=== PATIENT | male | born 1960 | race Hispanic/Latino ===

== ENCOUNTER 2021-12-25 08:48 | Inpatient (IN) | payer BC, OTHER ==
[~2021-12-25] VITALS: Ht 177.8 cm; Wt 88.3 kg
[2021-12-25 09:09] LABS: BASOPHILS % (AUTO) 0.6 % (0.0-5.0); EOSINOPHILS % (AUTO) 2.2 % (0.0-8.0); HEMATOCRIT 46.2 % (42-54); LYMPHOCYTES % (AUTO) 19.9 % (21.0-51.0); MEAN CORPUSCULAR HEMOGLOBIN 28.8 pg (27.0-33.0); MEAN CORPUSCULAR HGB CONC 32.9 g/dL (32.0-36.0); MEAN CORPUSCULAR VOLUME 87.5 fL (79-99); MONOCYTES % (AUTO) 7.2 % (3.0-13.0); NEUTROPHILS % (AUTO) 69.6 % (40.0-77.0); PLATELET COUNT (AUTO) 274 K/uL (130-400); RED BLOOD CELL COUNT(AUTO) 5.28 MIL/uL (4.50-6.20); RED CELL DISTRIBUTION WIDTH 12.7 % (11.0-15.5); WHITE BLOOD COUNT (AUTO) 8.3 K/uL (4.8-10.8)
[2021-12-25 09:41] LABS: APPEARANCE,URINE CLEAR (CLEAR); BILIRUBIN,URINE NEGATIVE (NEGATIVE); COLOR,URINE YELLOW (YELLOW); GLUCOSE, URINE (UA) NEGATIVE (NEGATIVE); KETONES,URINE NEGATIVE (NEGATIVE); LEUKOCYTE ESTERASE ,URINE NEGATIVE (NEGATIVE); NITRATE,URINE NEGATIVE (NEGATIVE); OCCULT BLOOD,URINE NEGATIVE (NEGATIVE); PH,URINE 7.5 (5.0-8.0); PROTEIN,URINE NEGATIVE (NEGATIVE); UROBILINOGEN,URINE 0.2 mg/dL (0.2-1.0)
[2021-12-25 09:49] LABS: CARBON DIOXIDE 28 mmol/L (21-32); CHLORIDE 104 mmol/L (101-111); GLOMERULAR FILTR. RATE CALC 80 mL/min (>60); GLUCOSE,RANDOM 134 mg/dL (70-105); POTASSIUM 4.3 mmol/L (3.5-5.1); SODIUM SERUM 140 mmol/L (136-145); UREA NITROGEN, BLOOD 13 mg/dL (7-18)
[2021-12-25 09:53] LABS: ALANINE AMINOTRANSFERASE 20 U/L (12-78); ALBUMIN 3.7 g/dL (3.5-5.0); ASPARTATE AMINOTRANSFERASE 22 U/L (10-37); LIPASE 110 U/L (114-286); TOTAL PROTEIN, SERUM 8.1 g/dL (6.0-8.3)
[2021-12-25] MEDS ORDERED: MORPHINE 4 MG SYG IVP ONE (10:00)
[2021-12-25] MEDS ORDERED: ONDANSETRON 4MG INJ IVP ONE (10:00)
[2021-12-25] MEDS ORDERED: ACET-2743 PO (10:01)
[2021-12-25] MEDS ORDERED: MVIT PO (10:01)
[2021-12-25] MEDS ORDERED: IBUP-2077 PO (10:01)
[2021-12-25 12:05] VITALS: BP 134/73
[2021-12-25] MEDS ORDERED: ACETAMINOPHEN 325 MG TAB PO PRN (15:00)
[2021-12-25] MEDS: HYDROMORPHONE 1 MG INJ IVP PRN (15:23)
[2021-12-25] MEDS: LEVOFLOXACIN 500 MG/D5W 100 ML 100 ML IV SCH (15:28)
[2021-12-25] MEDS: 0.9%NACL 1000ML 1,000 ML IV SCH (15:34)
[2021-12-25 16:08] VITALS: BP 172/107
[2021-12-25] MEDS: ONDANSETRON 4MG INJ IVP PRN (17:39)
[2021-12-25 20:14] VITALS: BP 145/87
[2021-12-25] MEDS: METRONIDAZOLE 500MG/100ML BAG 100 ML IVPB SCH (21:34)
[2021-12-25] MEDS: FAMOTIDINE 20MG VIAL IV SCH (21:34)
[2021-12-26] VITALS (7 sets, daily range): BP systolic 131–153; BP diastolic 77–84
[2021-12-26] MEDS: ONDANSETRON 4MG INJ IVP PRN ×2 (02:54→16:50)
[2021-12-26] MEDS: HYDROMORPHONE 1 MG INJ IVP PRN ×4 (02:55→17:21)
[2021-12-26 05:21] LABS: BASOPHILS % (AUTO) 0.5 % (0.0-5.0); EOSINOPHILS % (AUTO) 1.3 % (0.0-8.0); HEMATOCRIT 45.4 % (42-54); LYMPHOCYTES % (AUTO) 16.5 % (21.0-51.0); MEAN CORPUSCULAR HEMOGLOBIN 28.5 pg (27.0-33.0); MEAN CORPUSCULAR HGB CONC 32.8 g/dL (32.0-36.0); MEAN CORPUSCULAR VOLUME 86.8 fL (79-99); NEUTROPHILS % (AUTO) 72.5 % (40.0-77.0); PLATELET COUNT (AUTO) 254 K/uL (130-400); RED BLOOD CELL COUNT(AUTO) 5.23 MIL/uL (4.50-6.20); RED CELL DISTRIBUTION WIDTH 12.8 % (11.0-15.5); WHITE BLOOD COUNT (AUTO) 8.5 K/uL (4.8-10.8)
[2021-12-26] MEDS: METRONIDAZOLE 500MG/100ML BAG 100 ML IVPB SCH ×3 (05:26→21:01)
[2021-12-26 05:40] LABS: ALANINE AMINOTRANSFERASE 16 U/L (12-78); ALBUMIN 3.2 g/dL (3.5-5.0); ASPARTATE AMINOTRANSFERASE 19 U/L (10-37); CARBON DIOXIDE 29 mmol/L (21-32); CHLORIDE 103 mmol/L (101-111); CREATININE 1.1 mg/dL (0.5-1.5); GLOMERULAR FILTR. RATE CALC 72 mL/min (>60); GLUCOSE,RANDOM 125 mg/dL (70-105); SODIUM SERUM 138 mmol/L (136-145); TOTAL PROTEIN, SERUM 7.5 g/dL (6.0-8.3); UREA NITROGEN, BLOOD 15 mg/dL (7-18)
[2021-12-26] MEDS: FAMOTIDINE 20MG VIAL IV SCH ×2 (08:34→21:01)
[2021-12-26] MEDS: ENOXAPARIN SODIUM 30 MG/0.3 ML SQ SCH (08:35)
[2021-12-26] MEDS: 0.9%NACL 1000ML 1,000 ML IV SCH ×2 (08:38→17:40)
[2021-12-26] MEDS ORDERED: DIATR MEGLU/DIATRIZOATE SODIUM 30 ML BOTTLE ONE (14:20)
[2021-12-26] MEDS: LEVOFLOXACIN 500 MG/D5W 100 ML 100 ML IV SCH (14:44)
[2021-12-26] MEDS ORDERED: IOHEXOL 350 MG/ML 100ML INFUS..BTL IV ONE (18:18)
[2021-12-26] MEDS: MORPHINE 4 MG SYG IVP PRN (21:01)
[2021-12-27] MEDS: HYDROMORPHONE 1 MG INJ IVP PRN ×4 (01:48→19:19)
[2021-12-27 04:10] VITALS: BP 150/81
[2021-12-27 05:07] LABS: HEMATOCRIT 44.7 % (42-54); MEAN CORPUSCULAR HEMOGLOBIN 28.8 pg (27.0-33.0); MEAN CORPUSCULAR HGB CONC 33.3 g/dL (32.0-36.0); MEAN CORPUSCULAR VOLUME 86.3 fL (79-99); RED BLOOD CELL COUNT(AUTO) 5.18 MIL/uL (4.50-6.20); RED CELL DISTRIBUTION WIDTH 12.5 % (11.0-15.5); WHITE BLOOD COUNT (AUTO) 8.6 K/uL (4.8-10.8)
[2021-12-27 05:28] LABS: CREATININE 0.9 mg/dL (0.5-1.5); POTASSIUM 3.7 mmol/L (3.5-5.1)
[2021-12-27] MEDS: MORPHINE 4 MG SYG IVP PRN (05:34)
[2021-12-27] MEDS: 0.9%NACL 1000ML 1,000 ML IV SCH ×2 (05:35→20:20)
[2021-12-27] MEDS: METRONIDAZOLE 500MG/100ML BAG 100 ML IVPB SCH ×3 (05:35→21:31)
[2021-12-27] MEDS: ONDANSETRON 4MG INJ IVP PRN ×2 (05:42→13:48)
[2021-12-27 08:00] VITALS: BP 164/88
[2021-12-27] MEDS: ENOXAPARIN SODIUM 30 MG/0.3 ML SQ SCH (08:54)
[2021-12-27] MEDS: FAMOTIDINE 20MG VIAL IV SCH ×2 (08:54→21:31)
[2021-12-27] MEDS ORDERED: LIDOCAINE HCL-MPF 1% 2ML VIAL IV PRN (10:30)
[2021-12-27] MEDS ORDERED: POTASSIUM CHLORIDE 10% ELIXIR 20 MEQ/15 ML UDCUP PO PRN (10:30)
[2021-12-27] MEDS ORDERED: MAGNESIUM 2GM PREMIX 50ML 50 ML IV PRN (10:30)
[2021-12-27] MEDS ORDERED: POTASSIUM CHLORIDE 20MEQ/100ML 100 ML IV PRN (10:30)
[2021-12-27] MEDS ORDERED: GADOTERATE MEGLUMINE 10 MMOL/20 ML VIAL IV ONE (10:41)
[2021-12-27] MEDS: KCL 20 MEQ ERTAB PO PRN ×2 (13:28→16:05)
[2021-12-27 16:00] VITALS: BP 168/89
[2021-12-27] MEDS: LEVOFLOXACIN 500 MG/D5W 100 ML 100 ML IV SCH (16:05)
[2021-12-27 19:51] VITALS: BP 158/86
[2021-12-27] MEDS: KETOROLAC 30MG VIAL (30MG/ML) IVP PRN (21:31)
[2021-12-27 23:35] VITALS: BP 141/82
[2021-12-28] MEDS: HYDROMORPHONE 1 MG INJ IVP PRN (00:30)
[2021-12-28] MEDS: ONDANSETRON 4MG INJ IVP PRN ×2 (03:30→11:43)
[2021-12-28] MEDS: MORPHINE 4 MG SYG IVP PRN ×2 (03:31→13:46)
[2021-12-28 03:50] VITALS: BP 154/93
[2021-12-28 05:16] LABS: HEMATOCRIT 42.6 % (42-54); MEAN CORPUSCULAR HEMOGLOBIN 28.7 pg (27.0-33.0); MEAN CORPUSCULAR HGB CONC 32.9 g/dL (32.0-36.0); MEAN CORPUSCULAR VOLUME 87.5 fL (79-99); RED BLOOD CELL COUNT(AUTO) 4.87 MIL/uL (4.50-6.20); RED CELL DISTRIBUTION WIDTH 12.5 % (11.0-15.5); WHITE BLOOD COUNT (AUTO) 6.8 K/uL (4.8-10.8)
[2021-12-28] MEDS: METRONIDAZOLE 500MG/100ML BAG 100 ML IVPB SCH ×3 (05:18→22:09)
[2021-12-28] MEDS: KETOROLAC 30MG VIAL (30MG/ML) IVP PRN (05:18)
[2021-12-28 05:24] LABS: CREATININE 0.9 mg/dL (0.5-1.5); POTASSIUM 4.9 mmol/L (3.5-5.1)
[2021-12-28 07:58] VITALS: BP 163/89
[2021-12-28] MEDS: 0.9%NACL 1000ML 1,000 ML IV SCH ×2 (08:39→23:27)
[2021-12-28] MEDS: ENOXAPARIN SODIUM 30 MG/0.3 ML SQ SCH (08:43)
[2021-12-28] MEDS: FAMOTIDINE 20MG VIAL IV SCH ×2 (08:43→20:56)
[2021-12-28] MEDS: BICALUTAMIDE 50 MG PO SCH (10:00)
[2021-12-28] MEDS: DEXAMETHASONE SOD PHOSPHATE 4 MG/ML 1ML VIAL IV SCH (11:28)
[2021-12-28 12:00] VITALS: BP 165/92
[2021-12-28] MEDS: LEVOFLOXACIN 500 MG/D5W 100 ML 100 ML IV SCH (13:47)
[2021-12-28 16:00] VITALS: BP 156/89
[2021-12-28 21:34] VITALS: BP 149/78
[2021-12-28 23:55] VITALS: BP 136/78
[2021-12-29] MEDS: DEXAMETHASONE SOD PHOSPHATE 4 MG/ML 1ML VIAL IV SCH ×4 (00:47→17:42)
[2021-12-29 04:34] VITALS: BP 130/63
[2021-12-29] MEDS: MORPHINE 4 MG SYG IVP PRN (04:34)
[2021-12-29] MEDS: METRONIDAZOLE 500MG/100ML BAG 100 ML IVPB SCH ×3 (05:28→20:18)
[2021-12-29 08:00] VITALS: BP 143/82
[2021-12-29] MEDS: BICALUTAMIDE 50 MG PO SCH (09:00)
[2021-12-29] MEDS: FAMOTIDINE 20MG VIAL IV SCH ×2 (09:38→20:18)
[2021-12-29] MEDS: ENOXAPARIN SODIUM 30 MG/0.3 ML SQ SCH (09:43)
[2021-12-29 12:00] VITALS: BP 137/84
[2021-12-29 12:18] LABS: HEMATOCRIT 45.8 % (42-54); MEAN CORPUSCULAR HEMOGLOBIN 28.7 pg (27.0-33.0); MEAN CORPUSCULAR HGB CONC 33.8 g/dL (32.0-36.0); MEAN CORPUSCULAR VOLUME 84.8 fL (79-99); RED BLOOD CELL COUNT(AUTO) 5.4 MIL/uL (4.50-6.20); RED CELL DISTRIBUTION WIDTH 12.5 % (11.0-15.5)
[2021-12-29 12:25] LABS: CREATININE 0.9 mg/dL (0.5-1.5); POTASSIUM 4.7 mmol/L (3.5-5.1)
[2021-12-29] MEDS ORDERED: CALCITONIN 3.7 ML AEROSOL NS SCH (13:00)
[2021-12-29] MEDS: LEVOFLOXACIN 500 MG/D5W 100 ML 100 ML IV SCH (15:00)
[2021-12-29] MEDS: 0.9%NACL 1000ML 1,000 ML IV SCH (15:07)
[2021-12-29 16:00] VITALS: BP 137/75
[2021-12-29 20:43] VITALS: BP 131/81
[2021-12-30] VITALS (25 sets, daily range): BP systolic 80–149; BP diastolic 70–91
[2021-12-30] MEDS: DEXAMETHASONE SOD PHOSPHATE 4 MG/ML 1ML VIAL IV SCH ×4 (00:53→17:44)
[2021-12-30 05:17] LABS: HEMATOCRIT 45.2 % (42-54); MEAN CORPUSCULAR HEMOGLOBIN 28.4 pg (27.0-33.0); MEAN CORPUSCULAR HGB CONC 33.2 g/dL (32.0-36.0); MEAN CORPUSCULAR VOLUME 85.4 fL (79-99); RED BLOOD CELL COUNT(AUTO) 5.29 MIL/uL (4.50-6.20); RED CELL DISTRIBUTION WIDTH 12.6 % (11.0-15.5); WHITE BLOOD COUNT (AUTO) 8.5 K/uL (4.8-10.8)
[2021-12-30 05:29] LABS: CREATININE 0.9 mg/dL (0.5-1.5)
[2021-12-30] MEDS: METRONIDAZOLE 500MG/100ML BAG 100 ML IVPB SCH ×3 (05:55→21:05)
[2021-12-30] MEDS ORDERED: PROPOFOL 10 MG/ML 20ML VIAL IV ONE (07:15)
[2021-12-30] MEDS ORDERED: MIDAZOLAM HCL 1 MG/ML 2ML VIAL ONE (07:15)
[2021-12-30] MEDS ORDERED: FENTANYL CITRATE PF 50 MCG/1 ML 5ML AMP IV ONE (07:15)
[2021-12-30] MEDS ORDERED: ROCURONIUM 10MG/1ML SYR 10 MG/ML ML ONE (07:27)
[2021-12-30] MEDS ORDERED: BUPIVACAINE/PF 0.25% 30ML VIAL IJ ONE (07:29)
[2021-12-30] MEDS ORDERED: BACITRACIN 28.4 GM OINT TP ONE (07:29)
[2021-12-30] MEDS ORDERED: PHENYLEPHRINE HCL 10 MG/ML 1ML VIAL IV ONE (07:29)
[2021-12-30] MEDS ORDERED: KETAMINE 50MG/ML SYRINGE 50 MG/ML DISP.SYRIN IV ONE (07:35)
[2021-12-30] MEDS ORDERED: ONDANSETRON 4MG INJ ONE (08:26)
[2021-12-30] MEDS ORDERED: NEOSTIGMINE 5MG/5ML SYR IV ONE (08:36)
[2021-12-30] MEDS ORDERED: GLYCOPYRROLATE 1 MG/5 ML SYRINGE ONE (08:38)
[2021-12-30] MEDS: FAMOTIDINE 20MG VIAL IV SCH ×2 (08:38→21:05)
[2021-12-30] MEDS ORDERED: ATROPINE 1MG SYG IVP ONE (08:39)
[2021-12-30] MEDS: ENOXAPARIN SODIUM 30 MG/0.3 ML SQ SCH (08:39)
[2021-12-30] MEDS: BICALUTAMIDE 50 MG PO SCH (08:39)
[2021-12-30] MEDS: 0.9%NACL 1000ML 1,000 ML IV SCH (08:57)
[2021-12-30] MEDS ORDERED: MEPERIDINE-PF 25 MG/ML SYG ONE ×2 (09:09→09:21)
[2021-12-30] MEDS: LEVOFLOXACIN 500 MG/D5W 100 ML 100 ML IV SCH (17:44)
[2021-12-31 00:09] VITALS: BP 135/73
[2021-12-31] MEDS: DEXAMETHASONE SOD PHOSPHATE 4 MG/ML 1ML VIAL IV SCH ×2 (00:43→06:24)
[2021-12-31 04:11] VITALS: BP 118/52
[2021-12-31] MEDS: 0.9%NACL 1000ML 1,000 ML IV SCH (04:20)
[2021-12-31 05:15] LABS: HEMATOCRIT 41.7 % (42-54); MEAN CORPUSCULAR HEMOGLOBIN 28.7 pg (27.0-33.0); MEAN CORPUSCULAR HGB CONC 33.6 g/dL (32.0-36.0); MEAN CORPUSCULAR VOLUME 85.5 fL (79-99); RED BLOOD CELL COUNT(AUTO) 4.88 MIL/uL (4.50-6.20); RED CELL DISTRIBUTION WIDTH 12.6 % (11.0-15.5)
[2021-12-31 05:42] LABS: POTASSIUM 3.8 mmol/L (3.5-5.1)
[2021-12-31] MEDS: METRONIDAZOLE 500MG/100ML BAG 100 ML IVPB SCH (06:24)
[2021-12-31 08:00] VITALS: BP 147/83
[2021-12-31] MEDS: FAMOTIDINE 20MG VIAL IV SCH (08:52)
[2021-12-31] MEDS: BICALUTAMIDE 50 MG PO SCH (09:18)
[2021-12-31] MEDS ORDERED: LEVO500T90 PO (10:39)
[2021-12-31] MEDS ORDERED: DEXA6TAB PO (10:39)
[2021-12-31] MEDS ORDERED: METR-172 PO (10:39)
[2021-12-31 11:36] VITALS: BP 135/79
[2022-01-01] MEDS ORDERED: ENOXAPARIN SODIUM 30 MG/0.3 ML SQ SCH (09:00)
== END 2021-12-31 12:00 | disposition home or self-care (01) | DRG 711 ==
LOC: EDH 08:48 → EDHIP 10:02 → 3AH 11:14
PROVIDERS: ADMIT Hospitalist; ATTEND Hospitalist
PROC: 0VBC0ZZ Excision of Bilateral Testes, Open Approach (ICD-10-PCS; principal; 2021-12-30 07:40)
DX: C61 Malignant neoplasm of prostate (principal); C79.51 Secondary malignant neoplasm of bone; M48.56XA Collapsed vertebra, not elsewhere classified, lumbar region, initial encounter for fracture; C79.9 Secondary malignant neoplasm of unspecified site; R59.0 Localized enlarged lymph nodes; R59.1 Generalized enlarged lymph nodes; Z20.822 Contact with and (suspected) exposure to COVID-19; Z88.0 Allergy status to penicillin; E11.9 Type 2 diabetes mellitus without complications; H91.90 Unspecified hearing loss, unspecified ear; I10 Essential (primary) hypertension; Z92.3 Personal history of irradiation; Z87.891 Personal history of nicotine dependence
CPT/HCPCS: 36415; 71045; 71046; 71250; 72158; 74178; 80048; 80053; 81003; 82270; 82378; 83690; 83735; 84153; 84484; 85025; 85027; 87635; 93005; G0378; J0461; J1100; J1170; J1650; J1885; J1956; J2175; J2250; J2270; J2370; J2405; J2704; J2710; J3010; J3490; J7030; Q9963; Q9967

== ENCOUNTER → 2023-11-21 | Outpatient (CLI) | payer BC, MEDICARE ==
[~2023-11-21] MED LIST: ACET-2743 PO; DEXA6TAB PO; GADOTERATE MEGLUMINE 10 MMOL/20 ML VIAL IV ONE; IBUP-2077 PO; LEVO-70 PO; METR-172 PO; MVIT PO
== END | disposition home or self-care (01) ==
LOC: RAH 12:14
PROVIDERS: ATTEND Internal Medicine Medical Oncology
DX: C61 Malignant neoplasm of prostate (principal)
CPT/HCPCS: 72197; A9575